=== PATIENT | female | born 1965 | race Caucasian/White ===

== ENCOUNTER → 2019-10-13 | Outpatient (CLI) | payer BC ==
--- NOTE | 2019-10-13 17:14 | RAD ---
EXAM: Lumbar spine MRI without contrast. HISTORY: Pain. TECHNIQUE: Multiplanar, multisequence magnetic resonance imaging of the lumbar spine was performed without contrast. COMPARISON: None. FINDINGS: There is mild lumbar levoscoliosis. There is no significant listhesis. There is no fracture. There are few hemangiomas, the largest of which is seen within L2. There is endplate remodeling and Schmorl's node formation at all levels. The conus terminates at L1. 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 At L1-L2, there is endplate remodeling. There is mild central canal stenosis. At L2-L3, there is a right foraminal to extra foraminal disc protrusion with slight inferior and superior extrusion superimposed on a disc bulge and endplate remodeling. There is mild left facet arthropathy. There is mild right foraminal stenosis with abutment of the exiting right L2 nerve root. There is moderate central canal stenosis. At L3-L4, there is a right foraminal to extra foraminal disc protrusion and osteophyte complex superimposed on a disc bulge and endplate remodeling. There is moderate right foraminal stenosis with abutment of the exiting right L3 nerve root. There is moderate central canal stenosis. At L4-L5, there is a left paracentral to extra foraminal disc protrusion with slight superior extrusion superimposed on a disc bulge and endplate remodeling. There is mild left facet arthropathy. There is moderate left foraminal stenosis with abutment of the exiting left L4 nerve root. There is effacement of the left lateral recess and deviation of the traversing left nerve roots and mild central canal stenosis. At L5-S1, there is a right paracentral to lateral recess disc protrusion with slight inferior extrusion and annular tear superimposed on a disc bulge and right lateral predominant endplate remodeling. There is mild right facet arthropathy. There is mild right foraminal stenosis with abutment of the exiting right L5 nerve root. There is effacement of the right lateral recess with deviation of the traversing right nerve root and moderate to severe central canal stenosis. IMPRESSION: Multilevel degenerative change involving the lumbar spine, described in detail above. The combination of degenerative changes and congenital narrowing of the central canal contributes to mild central canal stenosis at L1-L2, mild right foraminal and moderate central canal stenosis at L2-L3, moderate right foraminal and central canal stenosis at L3-L4, moderate left foraminal and central canal stenosis with left lateral recess narrowing at L4-L5, and mild right foraminal and moderate to severe central canal stenosis with narrowing of the right lateral recess at L5-S1. Electronically signed by: Deepali Connor MD (10/13/2019 5:12 PM) [id number]
== END | disposition home or self-care (01) ==
LOC: MRI 15:51
PROVIDERS: ATTEND Physician Assistant Medical
DX: M48.07 Spinal stenosis, lumbosacral region (principal); M51.27 Other intervertebral disc displacement, lumbosacral region; M46.87 Other specified inflammatory spondylopathies, lumbosacral region; M51.37 Other intervertebral disc degeneration, lumbosacral region
CPT/HCPCS: 72148

== ENCOUNTER → 2019-10-20 | Outpatient (CLI) | payer BC ==
[~2019-10-20] MED LIST: ATOR10TA PO; CYCL10TA2 PO; DOCU-109 PO; FAMO20TA5 PO; FLUT9.9S NS; HYDR-2765 PO; HYDR12.575 PO; IBUP-1581 PO; LABE200T4 PO; MIRA25TA PO; MONT10TA49 PO; PANT40TA77 PO; ZOLP5TAB PO
[2019-10-20 13:53] LABS: BASO # 0.1 x10^3/uL (0.0-0.2); BASO % 1 % (0-3); EOS # 0.1 x10^3/uL (0.0-0.7); EOS % 1 % (0-3); HEMATOCRIT 41.9 % (36.0-47.0); HEMOGLOBIN 14.1 g/dL (12.0-15.5); LYMPH # 1.4 x10^3/uL (1.0-4.8); LYMPH % 23 % (24-48); MEAN CORPUSCULAR HEMOGLOBIN 29 pg (25-35); MEAN CORPUSCULAR HGB CONC 34 g/dL (31-37); MEAN CORPUSCULAR VOLUME 86 fL (79-100); MONO # 0.4 x10^3/uL (0.0-1.1); MONO % 6 % (0-9); NEUT # 4.3 x10^3/uL (1.8-7.7); NEUT % 69 % (31-73); PLATELET COUNT 259 x10^3/uL (140-400); RED BLOOD COUNT 4.86 x10^6/uL (3.50-5.40); RED CELL DISTRIBUTION WIDTH 13.8 % (11.5-14.5); WHITE BLOOD COUNT 6.2 x10^3/uL (4.0-11.0)
[2019-10-20 14:06] LABS: ALBUMIN 3.6 g/dL (3.4-5.0); ALBUMIN/GLOBULIN RATIO 1.2 (1.0-1.7); CALCIUM 9.3 mg/dL (8.5-10.1); CREATININE 0.8 mg/dL (0.6-1.0); GFR 74.5; POTASSIUM 3.8 mmol/L (3.5-5.1); TOTAL BILIRUBIN 0.2 mg/dL (0.2-1.0); TOTAL PROTEIN 6.7 g/dL (6.4-8.2)
--- NOTE | 2019-10-20 14:17 | EKG ---
[facility] [address] [place] [address] Test Date: 2019-10-20 Test Time: 14:07:24 Pat Name: CARMEN CASTILLO Department: Room: Gender: F Data Review Specialist: SHELBY : 1965 Requested By: ALEJANDRA HOUSTON Order Number: [id number] Reading MD: Nabor Sanchez Measurements Intervals [place] Rate: 77 P: 0 CO: 190 QRS: -20 QRSD: 78 T: 24 QT: 386 QTc: 439 Interpretive Statements SINUS RHYTHM LEFTWARD AXIS Electronically Signed On 10-21-2019 8:05:00 CDT by Nabor Sanchez
== END | disposition home or self-care (01) ==
LOC: SURGPAT 13:05
PROVIDERS: ATTEND Neurological Surgery
DX: Z01.818 Encounter for other preprocedural examination (principal); Z11.59 Encounter for screening for other viral diseases; M51.17 Intervertebral disc disorders with radiculopathy, lumbosacral region; Z88.0 Allergy status to penicillin; Z88.8 Allergy status to other drugs, medicaments and biological substances
CPT/HCPCS: 36415; 80053; 85025; 87635; 87641; 93005

== ENCOUNTER 2019-10-23 07:25 | Observation (INO) | payer BC ==
--- NOTE | 2019-10-21 13:29 | HP ---
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 She said the problem began about 7 weeks ago with right hip pain and then involved into right-sided lower back pain, right hip pain and right buttock pain with posterior thigh and leg pain. She has difficulty walking because of pain. She says her pain is 9-10/10. She says with rest her pain is a 3/10. Sitting her pain is a 6/10. Dangling her right leg increases her pain. Bending her right leg up helps her. She has been taking [place], diclofenac and oral prednisone without significant help. She has sent to the emergency room twice because of this pain. She has had visits with a chiropractor, which she says has not helped. She had a Doppler study of her right leg, which was negative. There is no problem on the left side. PAST MEDICAL HISTORY: Anemia, asthma, heart disease, hypertension, GERD. CURRENT MEDICATIONS: Kingston, diclofenac, labetalol, hydrochlorothiazide, vitamin D3, Protonix, Pepcid, Lipitor, Singulair, Ambien, Motrin, Flexeril, Flonase. PAST SURGICAL HISTORY: x 2, tubal ligation, lipoma removal. FAMILY HISTORY: Cancer, diabetes, heart disease, hypertension, OR, spine problems. SOCIAL HISTORY: She is a nurse counseling case manager. . Does not smoke. Does not drink alcohol. ALLERGIES: PENICILLIN, IRON, NICK INHIBITORS. REVIEW OF SYSTEMS: A 12-point review of systems was performed and is noncontributory except that mentioned above. PHYSICAL EXAMINATION: GENERAL: Alert, pleasant, in no acute distress. HEAD: Normocephalic, atraumatic. SKIN: Warm and dry. MUSCULOSKELETAL: Lumbar paraspinal muscle bulk is normal, restricted range of motion of the lumbar spine, [id number] tenderness of the lower lumbar spine with palpation, normal range of motion of the lower extremities bilaterally. EXTREMITIES: No clubbing, cyanosis or edema. NEUROLOGIC: Alert and oriented x 3, normal recent and remote memory, strength is 5/5 in the lower extremities except 4/5 right plantar flexion and sensory was intact to light touch in the lower extremities, reflexes were present and symmetric in the lower extremities bilaterally except for absent right ankle jerk, positive straight leg raising on the right, negative straight leg raising on the left, forward stooped antalgic gait favoring her right leg. IMAGING: I reviewed a lumbar MRI scan. On that study, there are a number of abnormalities, principally at L5-S1, there is a right paracentral lateral recess disc protrusion with an inferior extension, which is abutting the right transversing S1 nerve root. This is associated with severe central canal stenosis and lateral recess/subarticular stenosis on the right side. Additionally, at L2-L3, there is moderate central canal stenosis, right foraminal disk protrusion. At L3-L4, there is a disk osteophyte complex, which is in the right foramen. There is also moderate canal stenosis at this level. At L4-L5, there is a left paracentral extraforaminal disc protrusion which does appear to contact the transversing left L5 root. ASSESSMENT AND PLAN: She is having problems with an S1 pattern radiculopathy along with weakness of plantar flexion on the right. She has multilevel lumbar spinal problems. I believe the problems at L5-S1 on the right is responsible for her condition. I recommended lumbar microsurgery/microdiscectomy. We spoke about the technique, the risk and expected postoperative course. She understands and would like to go ahead. ALEJANDRA HOUSTON MD DR: JEREMIAH/jason JOB#: [id number] / [id number] RONNIE
[~2019-10-23] VITALS: Ht 172.7 cm; Wt 117.0 kg
[2019-10-23] VITALS (10 sets, daily range): BP systolic 108–149; BP diastolic 59–96
[~2019-10-23 07:25] MED LIST changes: +BACITRACIN 50,000 UNIT in IV NORMAL SALINE 1000ML BAG 1,000 ML IRR ONE; +BUPIVACAINE-EPI 0.5%-1:200000 MPF 30 ML VIAL. ONE; -DOCU-109 PO; +GELATIN SPONGE SIZE 100. ONE; +IV RINGERS,LACTATED 1000ML 1,000 ML IV SCH; +KETOROLAC 60 MG/2 ML VIAL. ONE; +ONDANSETRON PF 4 MG/2 ML VIAL. IV PRN; +PROCHLORPERAZINE 10 MG/2 ML VIAL. IV PRN; +THROMBIN TOPICAL 20,000 UNIT SPRAY.SYRN KIT TP ONE; +fentaNYL PF VIAL 100 MCG/2 ML VIAL IV PRN
[2019-10-23] MEDS ORDERED: LIDOCAINE 2% PF 5 ML VIAL. ONE (07:47)
[2019-10-23] MEDS ORDERED: fentaNYL PF VIAL 100 MCG/2 ML VIAL ONE ×2 (07:47→12:08)
[2019-10-23] MEDS ORDERED: SUCCINYLCHOLINE 200 MG/10 ML VIAL. ONE (07:47)
[2019-10-23] MEDS ORDERED: PROPOFOL 10 MG/ML (20ML) VIAL. IV ONE (07:47)
[2019-10-23] MEDS ORDERED: ROCURONIUM 50 MG/5 ML VIAL. ONE (07:48)
[2019-10-23] MEDS ORDERED: REMIFENTANIL 2 MG VIAL. IV ONE (07:50)
[2019-10-23] MEDS ORDERED: PROPOFOL 50 ML IV ONE ×2 (07:51→09:46)
[2019-10-23] MEDS ORDERED: ceFAZolin 2GM PREMIX 2 GM/50 ML BAG IV ONE (08:00)
[2019-10-23] MEDS ORDERED: SCOPOLAMINE 1.5MG PATCH. TD ONE (08:15)
[2019-10-23] MEDS ORDERED: ONDANSETRON PF 4 MG/2 ML VIAL. ONE (08:42)
[2019-10-23] MEDS ORDERED: DEXAMETHASONE SOD PHOS 4 MG/ML VIAL ONE (08:42)
[2019-10-23] MEDS ORDERED: FAMOTIDINE 20 MG/2 ML VIAL ONE (08:42)
[2019-10-23] MEDS ORDERED: DESFLURANE > 120 MINUTES IH ONE (08:51)
[2019-10-23] MEDS ORDERED: ceFAZolin SODIUM IV Push 1 GM VIAL. IVP ONE (09:08)
[2019-10-23] MEDS ORDERED: ePHEDrine PF IN SALINE 50 MG/10 ML SYRINGE. IV ONE (09:36)
[2019-10-23] MEDS ORDERED: PHENYLEPHRINE in 0.9% NACL PF 1 MG/10 ML SYRINGE. IV ONE (10:05)
--- NOTE | 2019-10-23 11:55 | OP ---
DATE OF SURGERY: 10/23/2019 PREOPERATIVE DIAGNOSES: Herniated lumbar disc, L5-S1, right with severe right lumbar radiculopathy. POSTOPERATIVE DIAGNOSES: Herniated lumbar disc, L5-S1, right with severe right lumbar radiculopathy. OPERATION PERFORMED: Hemilaminotomy and microdiscectomy, L5-S1, right. The operation was done with multimodality monitoring including EMG, SSEP, fluoroscopy, and microscopic dissection. SURGEON: Akshat Houston M.D. CHEMISTRY ACCOUNT MANAGER: HOLDEN Alex, assisted with the surgery. She assisted with the exposure, microdiscectomy and microdecompression as well as the closure. OPERATIVE INDICATIONS: The patient is a pleasant 54-year-old woman who developed intractable back and right leg pain which failed conservative measures. On imaging studies, she had a herniated disc, which was compressing the right S1 nerve root as well as hypertrophic facet ligament, which was also compressing narrowing the lateral recess. I recommended lumbar microsurgery after she failed conservative measures. She understood the surgery, the risks, and technique and she wished to go ahead. DESCRIPTION OF PROCEDURE: Following general endotracheal anesthesia, the patient was positioned prone on the Chase table. Lumbar region prepped and draped in standard fashion. VIVIANA hose and AV impulse boots were applied for DVT prophylaxis. The microscope was draped. Fluoroscopy was draped and brought in the field. Monitoring was established. Ancef 3 grams was given less than 1 hour prior to initiation of the surgery. Using fluoroscopic guidance, incision was made directly over the L5-S1 interspace. I dissected down through skin and subcutaneous tissue, reflected the paraspinal muscles and placed a 95 mm micro lumbar retractor and then gently worked and obtained exposure at L5-S1. I confirmed my position fluoroscopically. I brought in the microscope and using the high speed air drill, I burred down a hemilaminotomy, which was somewhat difficult at the depth, but I was working, but being slow and methodical, I was able to free up ligamentum flavum, peel it down and peeled from medial to lateral. I exposed the S1 root and performed a partial foraminotomy. I then began to work to free up the S1 root, it was densely scarred down via plethora of veins plus posterior ligament was also scarred to it. I gently worked and freed all this up and was able to retract the root medially. There was a large subligamentous fragment. I incised the annulus and ligament and there was a large calcified disc present, I began to tease and remove this, but it was densely adherent to the underlying material, I had to work very gently and began to trim pieces of this away and worked from lateral to medial and as I worked, the root became freer and freer. I did enter the disc space and perform a discectomy. Then, at this point, there was some scarred disc to the underlying ligament, but as much as could safely be removed, was removed and the nerve root was very free at this point and felt very well decompressed. I explored superiorly and inferiorly and assured myself that was the case. I then irrigated with antibiotic solution. Hemostasis was excellent throughout the operation. I closed the wound in layers with absorbable suture and skin was closed with 4-0 subcuticular stitch. I felt the surgery went very well. AKSHAT HOUSTON MD DR: MARY/jason JOB#: [id number] / [id number] RONNIE
[2019-10-23] MEDS ORDERED: DOCU-109 PO (12:26)
--- NOTE | 2019-10-23 12:27 | DISCH ---
DISCHARGE INSTRUCTIONS Condition on Discharge Condition on Discharge: Stable Activity After Discharge Activity Instructions for Disc: Avoid exertion Other activity instructions: no driving for a week Diet after Discharge Additional Diet Restrictions: resume home diet Wound Incision Care Wound/Incision Care: Ice to area for comfort Other wound/incision instructi: may remove dressing in 48 hours if dry then may shower, no soaking Contacting the after DC Call your doctor for: Concerns you may have Follow-Up Follow up with: Dr. Houston's nurse in 2 weeks [phone] ALEJANDRA HOUSTON MD October 23, 2019 12:27
[2019-10-23] MEDS ORDERED: HYDROcodone/APAP 7.5/325MG 1 TAB TABLET PO PRN ×2 (12:45→14:15)
[2019-10-23] MEDS ORDERED: hydrALAZINE 20 MG/ML VIAL. IVP ONE (13:30)
[2019-10-23] MEDS: fentaNYL PF VIAL 100 MCG/2 ML VIAL IV PRN ×2 (13:56→14:04)
[2019-10-23] MEDS ORDERED: POTASSIUM CL 20MEQ D5-0.45NACL 1,000 ML IV SCH (14:09)
[2019-10-23] MEDS ORDERED: CALCIUM CARBONATE 500 MG TAB.CHEW PO PRN (14:15)
[2019-10-23] MEDS ORDERED: ONDANSETRON PF 4 MG/2 ML VIAL. IVP PRN (14:15)
[2019-10-23] MEDS ORDERED: NALOXONE 0.4 MG/ML VIAL. IV PRN (14:15)
[2019-10-23] MEDS ORDERED: fentaNYL PF VIAL 100 MCG/2 ML VIAL IVP PRN (14:15)
[2019-10-23] MEDS ORDERED: NON FORMULARY ITEM (Mirabegron (Myrbetriq) 25 MG) PO SCH (14:15)
[2019-10-23] MEDS ORDERED: MAG HYDROX/ALUMINUM HYD/SIMETH 30 ML ORAL.SUSP PO PRN (14:15)
[2019-10-23] MEDS ORDERED: 0.9 % SODIUM CHLORIDE 10 ML DISP.SYRIN. IV PRN (14:15)
[2019-10-23] MEDS ORDERED: MAGNESIUM HYDROXIDE 2,400 MG/30 ML ORAL.SUSP. PO PRN (14:15)
[2019-10-23] MEDS ORDERED: diphenhydrAMINE HCL 25 MG CAPSULE PO PRN (14:15)
[2019-10-23] MEDS ORDERED: ACETAMINOPHEN 325 MG TABLET. PO PRN (14:15)
[2019-10-23] MEDS ORDERED: ZOLPIDEM 5 MG TABLET. PO PRN (14:15)
--- NOTE | 2019-10-23 14:50 | NUR ---
Arrived to unit by cart from PACU. Moved from cart to bed easily. Awake and talkative. No c/o at this time. Dressing lower back d/i. Able to move all extremities, warm and pedal pulses + bilaterally. IVF's intact and infusing. O2 at 2l per n/c. VIVIANA's and PARVEZ's on bilaterally. Oriented to room and controls. Side rails up x's 2 with call light in reach. Cont. monitor.
[2019-10-23] MEDS ORDERED: IBUPROFEN 400 MG TABLET. PO PRN (15:30)
--- NOTE | 2019-10-23 16:00 | NUR ---
Ambulated to bathroom with walker. Steady gait. Voided 500cc clear yellow urine. Returned to bed. Cont. monitor.
[2019-10-23] MEDS: HYDROcodone/APAP 7.5/325MG 1 TAB TABLET PO PRN ×2 (16:04→22:06)
[2019-10-23] MEDS: DOCUSATE SODIUM 100 MG CAPSULE. PO SCH (20:51)
[2019-10-23] MEDS: LABETALOL HCL 200 MG TABLET PO SCH (20:52)
[2019-10-23] MEDS: CYCLOBENZAPRINE 10 MG TABLET. PO SCH (20:53)
[2019-10-23] MEDS ORDERED: ATORVASTATIN CALCIUM 10 MG TABLET. PO SCH (21:00)
[2019-10-23] MEDS ORDERED: DOCUSATE SODIUM 100 MG CAPSULE. PO SCH (21:00)
[2019-10-23] MEDS ORDERED: FAMOTIDINE 20 MG TABLET. PO SCH (21:00)
[2019-10-23] MEDS ORDERED: MONTELUKAST SODIUM 10 MG TABLET. PO SCH (21:00)
[2019-10-24 02:14] VITALS: BP 129/73
[2019-10-24] MEDS: HYDROcodone/APAP 7.5/325MG 1 TAB TABLET PO PRN ×2 (04:04→10:18)
[2019-10-24 07:00] VITALS: BP 119/71
[2019-10-24] MEDS ORDERED: PANTOPRAZOLE 40 MG TABLET.DR. PO SCH (07:30)
[2019-10-24] MEDS: DOCUSATE SODIUM 100 MG CAPSULE. PO SCH (07:42)
[2019-10-24] MEDS: LABETALOL HCL 200 MG TABLET PO SCH (07:43)
[2019-10-24] MEDS: CYCLOBENZAPRINE 10 MG TABLET. PO SCH (07:44)
[2019-10-24] MEDS ORDERED: hydroCHLOROthiazide 12.5 MG CAPSULE PO SCH (09:00)
[2019-10-24] MEDS ORDERED: FLUTICASONE 50MCG/NASAL SPRAY 16GM BOTTLE. NS SCH (09:00)
--- NOTE | 2019-10-24 09:15 | NUR ---
SW following. Discussed with RN, pt from home, works as an RN. ADA diet, room air, no PT/OT needs. RN advised no SW needs and anticipates discharge home today. SW will continue to follow should any discharge needs arise.
[2019-10-24 10:39] VITALS: BP 111/59
--- NOTE | 2019-10-24 12:35 | NUR ---
Patient left the building around 1230. Discharge education completed prior with no concerns noted. Discharge instructions from spine center given to the patient along with her printed discharge papers. Script given to the patient for norco and then tizanidine was called by the doctor/METAL STORAGE WORKER to her pharmacy. Dressing to lower back changed with no signs of infection or complications noted. Iv discontinued prior to discharge. No concerns noted at discharge.
--- NOTE | 2019-10-24 17:06 | PATHOLOGY ---
[facility] Accession Number: [id number] . 01 Material submitted: . vertebral column - LUMBAR DISC AND DECOMPRESSION . 01 Clinical history: . Lumbar herniated disc with radiculopathy . 02 Diagnosis: Segments of fibrocartilaginous tissue and bone, lumbar disc and decompression: - Degenerative changes of fibrocartilaginous tissue. . ([facility]:mm; 10/24/2019) [facility] 10/24/2019 1119 Local . 02 Comment: There is no evidence of an acute inflammatory process or malignancy. . (M:mml; 10/24/2019) . 02 Electronically signed: . Gilbert Dorsey MD, Pathologist NPI- [id number] . 01 Gross description: . The specimen is received in formalin, labeled "[place], [place], lumbar disc and decompression" and consists of pink-younger soft and fibrous tissue admixed with bone measuring 3.8 x 3.0 x 0.6 cm. A chemical sales representative portion is submitted in A1 following decalcification. (SDY; 10/23/2019) SYU/SYU 10/23/2019 1508 Local . 02 Pathologist provided ICD-10: M51.36 . 02 CPT . 019169, [id number] Specimen Comment: A courtesy copy of this report has been sent to [phone], [phone] Specimen Comment: [id number] Specimen Comment: Report sent to / DR VILLARREAL Performed at: 01 [facility] [address], [place] [address] MD Tommie Garcia MD Phone: [phone] Performed at: 02 [facility] [id number] MD Gilbert Dorsey MD Phone: [phone]
== END 2019-10-24 12:39 | disposition home or self-care (01) ==
LOC: SURG 07:25 → 4 NORTH 15:10
PROVIDERS: ADMIT Neurological Surgery; ATTEND Neurological Surgery
DX: M51.27 Other intervertebral disc displacement, lumbosacral region (principal); D64.9 Anemia, unspecified; J45.909 Unspecified asthma, uncomplicated; I51.9 Heart disease, unspecified; I10 Essential (primary) hypertension; K21.9 Gastro-esophageal reflux disease without esophagitis; Z98.891 History of uterine scar from previous surgery; Z98.51 Tubal ligation status; Z79.899 Other long term (current) drug therapy
CPT/HCPCS: 63030; 76000; 82962; 97161; A7015; G0378; G0379; J0330; J0360; J0690; J0696; J1100; J1885; J2370; J2405; J2704; J3010; J3490; J7030; J7120

== ENCOUNTER → 2020-07-05 | Outpatient (CLI) | payer BC ==
[~2020-07-05] MED LIST changes: -BACITRACIN 50,000 UNIT in IV NORMAL SALINE 1000ML BAG 1,000 ML IRR ONE; -BUPIVACAINE-EPI 0.5%-1:200000 MPF 30 ML VIAL. ONE; +DOCU-109 PO; +GADOTERATE 7.5 MMOL/15ML VIAL. IVP ONE; -GELATIN SPONGE SIZE 100. ONE; -IV RINGERS,LACTATED 1000ML 1,000 ML IV SCH; -KETOROLAC 60 MG/2 ML VIAL. ONE; -ONDANSETRON PF 4 MG/2 ML VIAL. IV PRN; -PROCHLORPERAZINE 10 MG/2 ML VIAL. IV PRN; -THROMBIN TOPICAL 20,000 UNIT SPRAY.SYRN KIT TP ONE; -fentaNYL PF VIAL 100 MCG/2 ML VIAL IV PRN
--- NOTE | 2020-07-05 10:14 | KCIC ---
MRI LUMBAR SPINE WITHOUT AND WITH IV CONTRAST History: Reason: LUMBAR RADICULOPATHY / Spl. Instructions: PREVIOUS SURGERY 10/2019. / History: New on set of LBP Nov. Worsening RLE numbness. 22cc Clariscan Technique: Multiplanar, multi sequential MR imaging was performed of the lumbar spine without and wit h intravenous contrast. Comparison: October 13, 2019 Findings: Normal vertebral body height and alignment. No fracture. Conus terminates at the normal location. No evidence of nerve root clumping. No pathologic enhancemen t. L1-L2: Broad-based disc bulge. Mild facet arthropathy. No canal narrowing. No neuroforaminal narrowi ng. L2-L3: Broad-based disc bulge. Moderate facet arthropathy. Subarticular recess narrowing. No canal n arrowing. Superimposed right foraminal disc protrusion. Moderate right and mild left neuroforaminal n arrowing, unchanged. L3-L4: Broad-based disc bulge. Moderate facet arthropathy. No canal narrowing. Moderate bilateral ne uroforaminal narrowing, unchanged. L4-L5: Broad-based disc bulge with superimposed left subarticular and foraminal disc protrusion/extr usion. Moderate left neuroforaminal narrowing, unchanged. Mild right neuroforaminal narrowing. Left s ubarticular recess narrowing with abutment and displacement of the left descending L5 nerve root, unc hanged. L5-S1: Broad-based disc bulge with increased right foraminal disc protrusion. Interval postoperative changes right hemilaminectomy. No canal narrowing. Moderate to advanced facet arthropathy. Increased moderate to severe right neuroforaminal narrowing. Mild left neuroforaminal narrowing. Impression: 1. Interval postoperative changes L5-S1 with improved canal patency. 2. Increased right L5-S1 severe neuroforaminal narrowing with compression of the exiting right L5 ne rve root. 3. Unchanged L4-L5 left subarticular/foraminal disc protrusion/extrusion contributing to moderate le ft neuroforaminal narrowing and left subarticular recess narrowing. Electronically signed by: Ayad Rivas DO (07/05/2020 10:12 AM) [id number]
--- NOTE | 2020-07-05 10:16 | KCIC ---
XR L-SPINE BENDING ONLY 2-3 VIEWS History: Reason: LUMBAR RADICULOPATHY / Spl. Instructions: New onset of LBP, prior surgery last October. / History: Technique: 2 views lumbar spine lateral extension and flexion Comparison: MRI July 05, 2020 and October 13, 2019 Findings: Slight retrolisthesis L1 on L2 and L2 on L3 with extension, reduced with flexion. Moderate multilevel degenerative disc changes. Moderate lower lumbar facet arthropathy. Vascular calcifications. Chronic lower thoracic anterior vertebral body wedging. Impression: 1. Slight retrolisthesis L1 on L2 and L2 on L3 in extension and reduced with flexion. 2. Moderate multilevel lumbar spondylosis. Electronically signed by: Ayad Rivas DO (07/05/2020 10:14 AM) [id number]
== END ==
LOC: KCIC MRI 08:24
PROVIDERS: ATTEND Neurological Surgery
DX: M47.26 Other spondylosis with radiculopathy, lumbar region (principal); M51.16 Intervertebral disc disorders with radiculopathy, lumbar region; M48.07 Spinal stenosis, lumbosacral region; M53.3 Sacrococcygeal disorders, not elsewhere classified; M12.88 Other specific arthropathies, not elsewhere classified, other specified site; I70.90 Unspecified atherosclerosis
CPT/HCPCS: 72100; 72158; A9575

== ENCOUNTER → 2021-02-18 | Outpatient (CLI) | payer BC ==
[~2021-02-18] MED LIST changes: -GADOTERATE 7.5 MMOL/15ML VIAL. IVP ONE
--- NOTE | 2021-02-18 14:48 | KCIC ---
EXAMINATION: Magnetic resonance imaging (MRI) of the lumbar spine without contrast 02/18/2021 1:30 PM HISTORY: Bilateral lower extremity numbness, chronic TECHNIQUE: Multiplanar multi-weighted MRI of the lumbar spine was performed without intravenous contr ast using the standard lumbar spine protocol. Contrast information: None administered. COMPARISON: MRI lumbar spine 07/05/2020 FINDINGS: There is 2 mm retrolisthesis of L2 on L3 and L3 on L4. Vertebral body heights are maintained. Marrow signal intensity is normal in all sequences with exception of mild Modic type I endplate degenerative changes identified asymmetric to the right at L5-S1. Mild disc height loss L5-S1 and L2-3. Disc germain ccation is identified at all levels of lumbar spine. Conus medullaris terminates at L1. Distal spinal cord signal intensity is normal sequences. Schmorl's nodes are identified involving the inferior end plate of L2, superior and inferior endplate of L3 and inferior endplate of L4 without significant hei ght loss. Mild to moderate anterior marginal osteophytosis. Abdominal aorta is normal in caliber. No suspicious retroperitoneal abnormality is identified. The spinal soft tissues are normal. Visualized portions of the sacrum appear intact. There may be congenital narrowing of the spinal canal secondary to shortened pedicles most prominent at L3 and L4. T12-L1: Disc is normal in configuration. No significant facet arthropathy. No neuroforaminal or spina l canal stenosis. L1-L2: The disc is normal in configuration. There is no facet arthropathy. There is no neuroforaminal stenosis. There is no spinal canal stenosis. L2-L3: There is a circumferential disc bulge. Mild facet arthropathy ligamentum flavum infolding. Mod erate bilateral neuroforaminal stenosis. Mild to moderate spinal canal stenosis, exacerbated by epidu ral lipomatosis and congenital narrowing of the spinal canal. L3-L4: There is a circumferential disc bulge. Mild facet arthropathy ligamentum flavum infolding. Mod erate to severe left and moderate right neuroforaminal stenosis. Mild spinal canal stenosis. L4-L5: There is a circumferential disc bulge with left foraminal disc extrusion. Mild to moderate lef t and mild right facet arthropathy ligamentum flavum infolding. Severe left neuroforaminal stenosis. Mild/moderate right neuroforaminal stenosis. There is narrowing of the left lateral recess. Mild spin al canal stenosis. L5-S1: There is a circumferential disc bulge with right foraminal disc protrusion. Moderate facet art hropathy. There is an anteriorly projecting osteophyte from the right facet joint resulting in modera te severe right neural foraminal stenosis. Moderate left neuroforaminal stenosis. No significant spin al canal stenosis. IMPRESSION: Mild to moderate degenerative changes of the lumbar spine as described in detail above. Electronically signed by: Maryjo Ramon MD (02/18/2021 2:46 PM) [id number]
== END ==
LOC: KCIC MRI 12:44
PROVIDERS: ATTEND Physician Assistant Medical
DX: M47.817 Spondylosis without myelopathy or radiculopathy, lumbosacral region (principal); M51.27 Other intervertebral disc displacement, lumbosacral region; M48.07 Spinal stenosis, lumbosacral region; M25.78 Osteophyte, vertebrae
CPT/HCPCS: 72148

== ENCOUNTER → 2021-06-07 | Outpatient (CLI) | payer BC ==
[~2021-06-07] MED LIST changes: +CYCL10TA19 PO; -CYCL10TA2 PO; +IOHEXOL 180 MG/ML 10 ML VIAL. ONE; +IRON1TAB35 PO; +MV-M1TAB7 PO; +NAPR-699 PO; +methylPREDNISolone ACETATE 40 MG/ML VIAL. ONE; +methylPREDNISolone ACETATE 80 MG/ML VIAL. ONE
--- NOTE | 2021-06-07 16:13 | PDOC1 ---
INITIAL PAIN CONSULT DATE OF SERVICE: DOS: DATE: 06/07/21 TIME: 16:04 CHIEF COMPLAINT: Chief Complaint: Low back and right lower extremity pain HISTORY OF PRESENT ILLNESS: 56-year-old female presents with history of pain low back right lower extremity for about one and half years status post lumbar laminectomy L5S1 and microdiscectomy in October 23, 2019. Patient reports that essentially she did well initially after the surgery but after about a month the pain returned in the right hip low back right anterior lateral thigh medial thigh medial lower leg and into the foot involving all of the toes and mostly the lateral aspect of the right foot become numb and tingly since that time patient reports is worse with walking standing changing positions, walking walking upstairs putting all her weight on her right leg patient reports is intermittent intensity across the low back radiates the right lower extremity as described with numbness and tingling in the leg as well patient was aching and soreness also and numbness on the top of the foot on the right side only. Patient reports it wakes her from sleep least once or twice a night although she does take Ambien which helps still awakens her from sleep patient reports no bowel or bladder incontinence.patient reports it does affect her walking ability but she is not using any assistive devices to ambulate however. Patient reports her disability rating 0-10 10 being worst is a five with a home responsibilities recreation to social activity one with occupation for sexual behavior zero self-care or life support activities. Patient did have an MRI scan dated July 05, 2020 showing interval postoperative changes L5-S1 with improved canal patency increased right L5-S1 severe neuroforaminal narrowing with compression of the exiting right L5 nerve root unchanged L4-5 left subarticular foraminal disc protrusion extrusion contributing to moderate left neuroforaminal narrowing and left subarticular recess narrowing. PAST MEDICAL HISTORY: PMH: Hypertension, arthritis PREVIOUS SURGERIES: Past Surgical Hx: Cataract extraction, lumbar microdiscectomy, , lipoma excision, tubal ligation CURRENT MEDICATIONS: Current Meds: Active Scripts Medications Dose Route/Sig Max Daily Dose Days Date Category Naproxen 250 Mg Tablet 250 Mg PO PRN PRN 06/07/21 Reported Vitron-C Tablet (Iron,Carbonyl/Ascorbic Acid) 1 Each Tablet.dr 1 Tab PO DAILY 30 06/07/21 Reported Vitamin D3 Complete [place] (Mv-Mn/Iron/Fa/Herbal Cmplx#190) 1 Each Tablet 2,000 Units PO DAILY 06/07/21 Reported Montelukast Sodium Tablet (Montelukast Sodium) 10 Mg Tablet 10 Mg PO HS 10/20/19 Reported Flonase Allergy Relief (Fluticasone Propionate) 9.9 Ml [place].susp 1 Sprays NS DAILY 10/20/19 Reported Ambien (Zolpidem Tartrate) 5 Mg Tablet 5 Mg PO PRN QHS PRN 10/20/19 Reported Lipitor (Atorvastatin Calcium) 10 Mg Tablet 1 Tab PO 3X/WEEK 10/20/19 Reported Protonix (Pantoprazole Sodium) 40 Mg Tablet.dr 40 Mg PO DAILYAC 10/20/19 Reported Hydrochlorothiazide Capsule (Hydrochlorothiazide) 12.5 Mg Capsule 12.5 Mg PO DAILY 10/20/19 Reported Labetalol Hcl 200 Mg Tablet 1 Tab PO BID 10/20/19 Reported ALLERGIES; Allergies: Coded Allergies: Penicillins (Verified Allergy, Intermediate, cough/hives, 10/23/19) fenfluramine (Verified Allergy, Intermediate, Hives, 10/23/19) iron dextran complex (Verified Allergy, Intermediate, 10/23/19) join t and muscle pain NICK Inhibitors (Verified Adverse Reaction, Intermediate, cough, 10/23/19) morphine (Verified Adverse Reaction, Intermediate, Nausea and Vomiting, 10/23/19) FAMILY HISTORY: Family Hx: Diabetes, heart disease, renal cell cancer, hypercholesterolemia, obesity, arthritis SOCIAL HISTORY: Social Hx: Patient does not hollis alcohol does not smoke not use any illegal illicit recreational drugs is lives with her spouse and one child living at home lives in [facility] patient is a registered nurse REVIEW OF SYSTEMS: ROS: Positive for those items mentioned in history of present illness, all systems are reviewed, otherwise negative ,and are complete full and well-documented on patient's chart. PHYSICAL EXAM: VS: Blood pressure is 152/71 pulse 76 respirations 18 temperature is 98.0 F height is 5 feet 8 inches weight is 250 pounds PE: PHYSICAL EXAMINATION: GENERAL: The patient is awake, alert, oriented, appropriate, very pleasant in demeanor HEENT: Shows normocephalic, atraumatic. Extraocular movements are intact and symmetrical. Oral cavity: Mucous membranes moist and pink. Dentition is intact. NECK: Shows anterior throat supple without palpable lymphadenopathy noted. Swallow reflex symmetrical. CHEST: Shows normal on inspection. Breath sounds are clear bilaterally, distant but no rales or rhonchi. HEART: Shows S1, S2 clear. No murmurs auscultated. ABDOMEN: Soft, nontender, nondistended. No palpable organomegaly is noted. BACK: Shows spine grossly in the midline. Normal-appearing cervical lordotic curvature. There is some increased thoracic kyphosis, some flattening of the lumbar lordotic curvature, well-healed midline surgical scar noted. Lumbar paraspinous muscles show symmetrical on inspection, on palpation shows some moderate tenderness diffusely throughout the upper, middle and lower distribution of the paraspinous muscles bilaterally and also into the lower thoracic paraspinous musculature, firm and tender, but without specific trigger points, without radiation of pain. The patient has good rotational motion of the lumbar spine, both laterally as well as extension and flexion without significant difficulty. No tenderness over the spinous processes, sacrum or sacroiliac regions. EXTREMITIES: Lower extremities show deep tendon reflexes 2+ in the patellar and tendo calcaneus tendons. Motor exam is four on a scale of 5 with right dorsiflexion, extension, quadriceps and hamstring flexion and five/5 on the left. Peripheral pulses are 1+ posterior tibial. No peripheral edema is noted bilaterally. Lower extremities are warm and dry to touch, equal in color and appearance. Straight leg raise noted to be negative bilaterally. Gaenslen's and Doug's maneuvers are negative bilaterally as well. The patient is able to stand, stand on her toes that significant difficulty loss of balance, walks with a slight favoring gait does appear to favor the right lower extremity only slightly with not using any assistive devices to ambulate. SKIN: Shows warm and dry, good turgor. No edema. No sores, rashes or bruising throughout. IMPRESSION: Impression: 56-year-old female with approximate 5-month history increasing low back right lower extremity pain in a radicular fashion. MRI scan is noted Arthritis Hypertension Plan: Options were discussed with the patient occluding serve medical managements continue physical therapies interventional techniques. Patient elects interventional techniques. We discussed a lumbar epidural steroid injection using description as well as anatomical models to describe the procedure. Risks were discussed including but not limited to: Bleeding, infection, possibility of epidural hematoma and subsequent neurological compromise, dural puncture, headaches, spinal cord and/or nerve damage, side effects of steroid medication, and poor results regarding pain control. Patient understands and wished to proceed. Patient will return to clinic in approximately 2 weeks for follow-up, was counseled as to return appointment, activity level, and side effect to be aware of. Procedure is lumbar epidural steroid injection under local anesthetic using sterile prep and drape at the L5-S1 level using C-arm fluoroscopic guidance in both AP and lateral views medications injected is 120 mg Depo-Medrol +10mL preservative-free normal saline and 2 mL contrast- condition at discharge is stable patient tolerated procedure well had no complications. SADIA GARCIA MD Jun 07, 2021 16:13
--- NOTE | 2021-06-07 16:14 | PDOC4 ---
Procedure Note: ICD 10 Code: ICD 10 Code: M54.17 M51.87 M4 8.07 M 96.1 Procedure Note: Patient was consented for lumbar epidural steroid injection with fluoroscopic guidance. Risks were discussed including but not limited to: Bleeding, infection, possibility of epidural hematoma and subsequent neurological compromise, dural puncture, headaches, spinal cord and/or nerve damage, side effects of steroid medication, and poor results regarding pain control. Patient understands and wished to proceed. Procedure is lumbar epidural steroid injection under local anesthetic using sterile prep and drape at the L5-S1 level using C-arm fluoroscopic guidance in both AP and lateral views medications injected is 120 mg Depo-Medrol +10mL preservative-free normal saline and 2 mL contrast- condition at discharge is stable patient tolerated procedure well had no complications. SADIA GARCIA MD Jun 07, 2021 16:14
== END | disposition home or self-care (01) ==
LOC: PNCL 13:44
PROVIDERS: ATTEND Anesthesiology
DX: M51.17 Intervertebral disc disorders with radiculopathy, lumbosacral region (principal); M48.07 Spinal stenosis, lumbosacral region; M96.1 Postlaminectomy syndrome, not elsewhere classified; M79.604 Pain in right leg; I10 Essential (primary) hypertension; M19.90 Unspecified osteoarthritis, unspecified site; I25.10 Atherosclerotic heart disease of native coronary artery without angina pectoris; E78.00 Pure hypercholesterolemia, unspecified; E66.9 Obesity, unspecified; K21.9 Gastro-esophageal reflux disease without esophagitis; E11.9 Type 2 diabetes mellitus without complications; Z98.51 Tubal ligation status; Z98.890 Other specified postprocedural states; Z79.899 Other long term (current) drug therapy; Z88.0 Allergy status to penicillin; Z88.6 Allergy status to analgesic agent; Z88.8 Allergy status to other drugs, medicaments and biological substances
CPT/HCPCS: 62323; J1030; J1040; Q9965

== ENCOUNTER → 2021-07-11 | Outpatient (CLI) | payer BC ==
[~2021-07-11] MED LIST changes: -methylPREDNISolone ACETATE 40 MG/ML VIAL. ONE
--- NOTE | 2021-07-11 14:40 | PDOC ---
Progress Note - Pain Clinic Date of Service: DOS: DATE: 07/11/21 TIME: 14:37 Diagnosis: Dx: Lumbar radiculopathy with lumbar degenerative disc disease lumbar spinal stenosis and lumbar postlaminectomy syndrome History or Present Illness: HPI: 56-year-old female returns for follow-up status post lumbar epidural steroid injection x1 with about 75 to 80% improvement patient reports the pain is stayed down fairly well but is beginning to return in the low back and the right lower extremity and with some cramping and tightness which is new in the calf and foot with some tingling in the right foot as well patient reports otherwise pain is in the low back rating the posterior gluteus thigh calf and foot as it was but now with new cramps which are beginning to become more noticeable mostly at night patient reports is a 2 on a scale 10 is worst over the past week 1 on average 0 its least is a 2 today patient report is dull and tight tingling cramping worse with walking standing changing positions also cramping now at night no deficits but significant fatigability the right leg with walking, patient reports no bowel or bladder incontinence Physical Exam: VS: Blood pressure is 135/89 pulse 58 respirations 18 temperature 97.9 F weight is 252 pounds PE: PHYSICAL EXAMINATION: GENERAL: The patient is awake, alert, oriented, appropriate, very pleasant in demeanor HEENT: Shows normocephalic, atraumatic. Extraocular movements are intact and symmetrical. Oral cavity: Mucous membranes moist and pink. Dentition is intact. NECK: Shows anterior throat supple without palpable lymphadenopathy noted. Swallow reflex symmetrical. CHEST: Shows normal on inspection. Breath sounds are clear bilaterally, no rales rhonchi or wheezes auscultated. HEART: Shows S1, S2 clear. No murmurs auscultated. ABDOMEN: Soft, nontender, nondistended. No palpable organomegaly is noted. No rebound or guarding demonstrated. BACK: Shows spine grossly in the midline. Normal-appearing cervical lordotic curvature. There is slightly increased thoracic kyphosis, some minor flattening of the lumbar lordotic curvature. Lumbar paraspinous muscles show symmetrical on inspection, on palpation shows some moderate tenderness diffusely throughout the upper, middle and lower distribution of the paraspinous muscles, but without specific trigger points, without radiation of pain. The patient has good rot ational motion of the lumbar spine, both laterally as well as extension and flexion without significant difficulty. No tenderness over the spinous processes, sacrum or sacroiliac regions. EXTREMITIES: Lower extremities show deep tendon reflexes 2+ in the patellar and tendo calcaneus tendons. Motor exam is 4 on a scale of 5 with right dorsiflexion, extension, quadriceps and hamstring flexion and 5/5 on the left. Peripheral pulses are 1+ posterior tibial. No peripheral edema is noted bilaterally. Lower extremities are warm and dry to touch, equal in color and appearance. SKIN: Shows warm and dry, good turgor. No edema. No sores, rashes or bruising throughout. Procedure: Procedure: Options discussed with the patient. Patient's old chart was reviewed as her current medication regimen updated current review of systems updated today as well. We will proceed with a lumbar epidural steroid injections and fluoroscopic guidance. Risks were discussed including but not limited to: Bleeding, infection, possibility of epidural hematoma and subsequent neurological compromise, dural puncture, headaches, spinal cord and/or nerve damage, side effects of steroid medication, and poor results regarding pain control. Patient understands and wished to proceed. Patient return to clinic in approximate 2 weeks for follow-up, was counseled return appointment, activity level, and side effects beware of. Medication Injected: Med Injected: Procedure is lumbar epidural steroid injection under local anesthetic using sterile prep and drape at the L5-S1 level using C-arm fluoroscopic guidance in both AP and lateral views medications injected is 120 mg Depo-Medrol +10mL preservative-free normal saline and 2 mL contrast- condition at discharge is stable patient tolerated procedure well had no complications. Condition at Discharge: Condition at Discharge: Condition at discharge stable, paced tolerated the procedure well and had no complications. SADIA GARCIA MD Jul 11, 2021 14:40
--- NOTE | 2021-07-11 14:41 | PDOC4 ---
Procedure Note: ICD 10 Code: ICD 10 Code: M50.17 M51.7 M4 8.07 M 96.1 Procedure Note: Patient was consented for lumbar epidural steroid injection with fluoroscopic guidance. Risks were discussed including but not limited to: Bleeding, infection, possibility of epidural hematoma and subsequent neurological compromise, dural puncture, headaches, spinal cord and/or nerve damage, side effects of steroid medication, and poor results regarding pain control. Patient understands and wished to proceed. Procedure is lumbar epidural steroid injection under local anesthetic using sterile prep and drape at the L5-S1 level using C-arm fluoroscopic guidance in both AP and lateral views medications injected is 120 mg Depo-Medrol +10mL preservative-free normal saline and 2 mL contrast- condition at discharge is stable patient tolerated procedure well had no complications. SADIA GARCIA MD Jul 11, 2021 14:41
== END | disposition home or self-care (01) ==
LOC: PNCL 14:02
PROVIDERS: ATTEND Anesthesiology
DX: M51.16 Intervertebral disc disorders with radiculopathy, lumbar region (principal); M48.061 Spinal stenosis, lumbar region without neurogenic claudication; M96.1 Postlaminectomy syndrome, not elsewhere classified; I25.10 Atherosclerotic heart disease of native coronary artery without angina pectoris; I10 Essential (primary) hypertension; E78.00 Pure hypercholesterolemia, unspecified; J45.909 Unspecified asthma, uncomplicated; E11.9 Type 2 diabetes mellitus without complications; K21.9 Gastro-esophageal reflux disease without esophagitis; E66.9 Obesity, unspecified; M19.90 Unspecified osteoarthritis, unspecified site; Z98.51 Tubal ligation status; Z98.890 Other specified postprocedural states; Z79.899 Other long term (current) drug therapy; Z88.0 Allergy status to penicillin; Z88.8 Allergy status to other drugs, medicaments and biological substances; Z88.6 Allergy status to analgesic agent
CPT/HCPCS: 62323; J1040; Q9965

== ENCOUNTER → 2021-08-15 | Outpatient (CLI) | payer BC ==
[~2021-08-15] MED LIST changes: +DEXAMETHASONE PRES.FREE 10 MG/ML VIAL. ONE; -methylPREDNISolone ACETATE 80 MG/ML VIAL. ONE
--- NOTE | 2021-08-15 14:11 | PDOC ---
Progress Note - Pain Clinic Date of Service: DOS: DATE: 08/15/21 TIME: 14:07 Diagnosis: Dx: Lumbar radiculopathy with lumbar degenerative disease lumbar spinal stenosis at lumbar postlaminectomy syndrome Osteoarthritis History or Present Illness: HPI: 56-year-old female returns for follow-up status post lumbar epidural steroid injection x2. Patient reports about 75 to 80% improvement after the first injection now about 50% improvement patient has pain low back and right lower extremity also in the mid back and radiating the right posterior gluteus posterior thigh and into the calf on the right side as well as the right foot with some numbness and tingling in the right leg and cramping since her last visit patient reports Medrol Dosepak that she took did decrease the pain fairly significantly and the tingling but is still present with walking standing especially stiff in the morning patient reports a 3-4 scale 10 is worse over the past week 2-3 on average 1 its least is a 3 today. Patient reports no bowel or bladder incontinence better with laying down generally not awaken her from sleep at night worse with walking standing changing positions. Patient reports no loss of significant fatigability of the right leg as well. Patient reports significant pain in the knees with walking standing as well as in the hips at times as well and has been taking some Aleve at home which upsets her stomach fairly significantly but she is not taking it nearly as often since her last injection. We discussed options and will substitute meloxicam as a new prescription medication for the Aleve this may be more tolerable and more effective. Patient given instructions well side effects beware with the new prescription medication. Physical Exam: VS: Blood pressure is 150/96 pulse 60 respirations 18 temperature 98.1 F height 5 feet 8 inches weight is 252 pounds PE: PHYSICAL EXAMINATION: GENERAL: The patient is awake, alert, oriented, appropriate, very pleasant in demeanor HEENT: Shows normocephalic, atraumatic. Extraocular movements are intact and symmetrical. Oral cavity: Mucous membranes moist and pink. Dentition is intact. NECK: Shows anterior throat supple without palpable lymphadenopathy noted. Swallow reflex symmetrical. CHEST: Shows normal on inspection. Breath sounds are clear bilaterally, distant but no rales or rhonchi. HEART: Shows S1, S2 clear. No murmurs auscultated. ABDOMEN: Soft, nontender, nondistended. No palpable organomegaly is noted. BACK: Shows spine grossly in the midline. Normal-appearing cervical lordotic curvature. There is slightly increased thoracic kyphosis, some flattening of the lumbar lordotic curvature with midline well-healed surgical scar. Lumbar paraspinous muscles show symmetrical on inspection, on palpation shows some moderate tenderness diffusely throughout the upper, middle and lower distribution of the paraspinous muscles without specific trigger points, without radiation of pain. The patient has good rotational motion of the lumbar spine, both laterally as well as extension and flexion without significant difficulty. EXTREMITIES: Lower extremities show deep tendon reflexes 2+ in the patellar and tendo calcaneus tendons. Motor exam is 4 on a scale of 5 with right dorsiflexion, extension, quadriceps and hamstring flexion and 5/5 on the left. Peripheral pulses are 1+ posterior tibial. No peripheral edema is noted bilaterally. Lower extremities are warm and dry. SKIN: Shows warm and dry, good turgor. No edema. No sores, rashes or bruising throughout. Procedure: Procedure: Options discussed with the patient. Patient's old chart was reviewed as her current medication regimen updated current review of systems updated today as well. We will proceed with a lumbar epidural steroid injection today with fluoroscopic guidance. Risks were discussed including but not limited to: Bleeding, infection, possibility of epidural hematoma and subsequent neurological compromise, dural puncture, headaches, spinal cord and/or nerve d amage, side effects of steroid medication, and poor results regarding pain control. Patient understands and wished to proceed. Patient will return to the clinic in approximately 2 weeks for follow-up, was counseled as to return appointment, active level, and side effects beware. Again, will prescribe new prescription medication of meloxicam 15 mg once daily, patient was given instructions as well as side effects beware with the new medication. Medication Injected: Med Injected: Procedure is lumbar epidural steroid injection under local anesthetic using sterile prep and drape at the L5-S1 level using C-arm fluoroscopic guidance in both AP and lateral views medications injected is 20 mg dexamethasone +10mL preservative-free normal saline and 2 mL contrast- condition at discharge is stable patient tolerated procedure well had no complications. Condition at Discharge: Condition at Discharge: Condition at discharge stable, patient tolerated the procedure well and had no complications. SADIA GARCIA MD Aug 15, 2021 14:11
--- NOTE | 2021-08-15 14:12 | PDOC4 ---
Procedure Note: ICD 10 Code: ICD 10 Code: M54.17 M51.87 M4 8.07 M 96.1 Procedure Note: Patient was consented for lumbar epidural steroid injection with fluoroscopic guidance. Risks were discussed including but not limited to: Bleeding, infection, possibility of epidural hematoma and subsequent neurological compromise, dural puncture, headaches, spinal cord and/or nerve damage, side effects of steroid medication, and poor results regarding pain control. Patient understands and wished to proceed. Procedure is lumbar epidural steroid injection under local anesthetic using sterile prep and drape at the L5-S1 level using C-arm fluoroscopic guidance in both AP and lateral views medications injected is 20 mg dexamethasone +10mL preservative-free normal saline and 2 mL contrast- condition at discharge is stable patient tolerated procedure well had no complications. SADIA GARCIA MD Aug 15, 2021 14:12
== END | disposition home or self-care (01) ==
LOC: PNCL 13:27
PROVIDERS: ATTEND Anesthesiology
DX: M51.16 Intervertebral disc disorders with radiculopathy, lumbar region (principal); M48.061 Spinal stenosis, lumbar region without neurogenic claudication; M96.1 Postlaminectomy syndrome, not elsewhere classified; M19.90 Unspecified osteoarthritis, unspecified site; I25.10 Atherosclerotic heart disease of native coronary artery without angina pectoris; I10 Essential (primary) hypertension; E78.00 Pure hypercholesterolemia, unspecified; J45.909 Unspecified asthma, uncomplicated; E11.9 Type 2 diabetes mellitus without complications; E66.9 Obesity, unspecified; K21.9 Gastro-esophageal reflux disease without esophagitis; Z79.899 Other long term (current) drug therapy; Z98.51 Tubal ligation status; Z98.890 Other specified postprocedural states; Z88.0 Allergy status to penicillin; Z88.6 Allergy status to analgesic agent; Z88.8 Allergy status to other drugs, medicaments and biological substances; Z82.49 Family history of ischemic heart disease and other diseases of the circulatory system
CPT/HCPCS: 62323; J1100; Q9965

== ENCOUNTER → 2021-10-24 | Outpatient (CLI) | payer BC ==
[~2021-10-24] MED LIST changes: +CELE200C PO; -DEXAMETHASONE PRES.FREE 10 MG/ML VIAL. ONE; -IOHEXOL 180 MG/ML 10 ML VIAL. ONE
--- NOTE | 2021-10-24 15:37 | PDOC ---
Progress Note - Pain Clinic Date of Service: DOS: DATE: 10/24/21 TIME: 15:34 Diagnosis: Dx: Lumbar radiculopathy with lumbar degenerative disease lumbar spinal stenosis with lumbar postlaminectomy syndrome History or Present Illness: HPI: 56-year-old female returns for follow-up status post lumbar epidural steroid injection last seen August 15, 2021, patient did very well with about 75% improvement but now reports pain on the left side of the low back as well as the right side where previously was only on the right patient reports is becoming more noticeable over the past 4 weeks or so not the result of any specific injury or accident that she is aware but getting worse with some pain in the left buttock as well as in the left lateral thigh and medial lower leg patient reports is a 5-6 on scale 10 is worst in the past week 3 on average 1 its least is a 3 today pain scribes aching and dull and soreness in the back and legs and tingling radiating at times but on and off in intensity better with sitting or laying down generally does not awaken her from sleep at night worse with walking standing and bending forward repetitively. Patient reports no loss of motor function no bowel or bladder incontinence. Patient has been taking diclofenac but it is upsetting her stomach where she is having a lot of acid reflux although it is decreasing the pain to some extent in the left lower extremity. We did go over her MRI scan from June 2020 showing left-sided disc protrusion at L4-5 as well as right-sided protrusion at L5-S1. Physical Exam: VS: Blood pressure is 161/86 pulse 58 respirations 18 temperature is 98.2 F height is 58 inches weight is 259 pounds. PE: PHYSICAL EXAMINATION: GENERAL: The patient is awake, alert, oriented, appropriate, very pleasant in demeanor HEENT: Shows normocephalic, atraumatic. Extraocular movements are intact and symmetrical. Oral cavity: Mucous membranes moist and pink. Dentition is intact. NECK: Shows anterior throat supple without palpable lymphadenopathy noted. Swallow reflex symmetrical. CHEST: Shows normal on inspection. Breath sounds are clear bilaterally. HEART: Shows S1, S2 clear. No murmurs auscultated. ABDOMEN: Soft, nontender, nondistended. No palpable organomegaly is noted. BACK: Shows spine grossly in the midline. Normal-appearing cervical lordotic curvature. There is slightly increased thoracic kyphosis, some flattening of the lumbar lordotic curvature, with well-healed surgical scarring noted. Lumbar paraspinous muscles show symmetrical on inspection, on palpation shows some moderate tenderness diffusely throughout the upper, middle and lower distribution of the paraspinous muscles without specific trigger points, without radiation of pain. The patient has good rotational motion of the lumbar spine, both laterally as well as extension and flexion without significant difficulty. EXTREMITIES: Lower extremities show deep tendon reflexes 2 in the patellar and tendo calcaneus tendons. Motor exam is 4 on a scale of 5 with right dorsif lexion, extension, quadriceps and hamstring flexion and 5/5 on the left. Peripheral pulses are 1+ posterior tibial. No peripheral edema is noted bilaterally. Lower extremities are warm and dry to touch, equal in color and appearance. SKIN: Shows warm and dry, good turgor. No edema. No sores, rashes or bruising throughout. Procedure: Procedure: Options were discussed with the patient. Patient's old chart was reviewed as her current medication regimen updated current review of systems updated today as well. We discussed patient's medication and will change from diclofenac to Celebrex to 1 mg daily. Patient is given instruction as well as side effects beware with the medication. Also, will add Medrol Dosepak to take first patient is given instructions as well as side effects beware of with this as well. Patient will follow up in approximately 4 weeks as scheduled. Medication Injected: Med Injected: None Condition at Discharge: Condition at Discharge: Condition at discharge is stable. SADIA GARCIA MD October 24, 2021 15:37
== END | disposition home or self-care (01) ==
LOC: PNCL 14:13
PROVIDERS: ATTEND Anesthesiology
DX: M51.16 Intervertebral disc disorders with radiculopathy, lumbar region (principal); M48.061 Spinal stenosis, lumbar region without neurogenic claudication; M96.1 Postlaminectomy syndrome, not elsewhere classified; I25.10 Atherosclerotic heart disease of native coronary artery without angina pectoris; I10 Essential (primary) hypertension; E78.00 Pure hypercholesterolemia, unspecified; E66.9 Obesity, unspecified; K21.9 Gastro-esophageal reflux disease without esophagitis; E11.9 Type 2 diabetes mellitus without complications; M19.90 Unspecified osteoarthritis, unspecified site; J45.909 Unspecified asthma, uncomplicated; Z79.899 Other long term (current) drug therapy; Z98.890 Other specified postprocedural states; Z88.0 Allergy status to penicillin; Z88.8 Allergy status to other drugs, medicaments and biological substances
CPT/HCPCS: 99212; G0463